=== PATIENT | male | born 1985 | race Caucasian/White ===

== ENCOUNTER → 2017-09-26 | Outpatient (CLI) | payer OTHER ==
[2014-12-02 23:54] VITALS: BP 156/79
--- NOTE | 2017-09-26 09:19 | RAD ---
Chest radiograph with left rib series 09/26/2017 8:50 AM INDICATION: Fall one and a half weeks ago with left-sided rib pain and bruising. COMPARISON: None available TECHNIQUE: Frontal view of the chest with 2 dedicated views of the left ribs are provided. FINDINGS: The cardiomediastinal silhouette is within normal limits. There are no pleural effusions. There is no pulmonary vascular congestion. There is no pneumothorax. The lungs are clear. Hypoplastic ribs are identified at T12. No definite displaced rib fracture is visualized. IMPRESSION: No acute cardiopulmonary process. No definite acutely displaced left-sided rib fracture is visualized. Electronically signed by: Shazia Ivey MD (09/26/2017 9:15 AM) [id number]
== END | disposition home or self-care (01) ==
LOC: PMG 08:35
PROVIDERS: ATTEND Physician Assistant Medical
DX: R07.81 Pleurodynia (principal)
CPT/HCPCS: 71101

== ENCOUNTER 2018-09-04 22:47 | Emergency (ER) | payer OTHER ==
[~2018-09-04] VITALS: Ht 167.6 cm; Wt 103.4 kg
[2018-09-04 22:51] VITALS: BP 153/105
[2018-09-04] MEDS ORDERED: NEOMY/BACITR/POLYMYXIN OINT PACKET. TP ONE ×2 (22:54→23:15)
[2018-09-04] MEDS ORDERED: HYDROcodon/IBUPROFEN 7.5/200MG 1 TAB TABLET PO ONE (23:15)
[2018-09-04] MEDS ORDERED: DIPHTH,PERTUSS(ACELL),TET TOX 0.5 ML DISP.SYRIN. VAX IM ONE (23:15)
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
== END 2018-09-04 23:24 | disposition home or self-care (01) ==
LOC: ER 22:47
DX: S63.502A Unspecified sprain of left wrist, initial encounter (principal); S90.511A Abrasion, right ankle, initial encounter; E03.9 Hypothyroidism, unspecified; Z88.0 Allergy status to penicillin; Z88.2 Allergy status to sulfonamides; Y04.0XXA Assault by unarmed brawl or fight, initial encounter; Y93.89 Activity, other specified; Y92.098 Other place in other non-institutional residence as the place of occurrence of the external cause; Y99.8 Other external cause status
CPT/HCPCS: 73110; 99284

== ENCOUNTER → 2019-01-03 | Outpatient (CLI) | payer OTHER ==
--- NOTE | 2019-01-03 14:35 | RAD ---
EXAM: Abdomen sonogram. HISTORY: Right upper quadrant pain. TECHNIQUE: Sonographic imaging of the abdomen was performed. COMPARISON: None. FINDINGS: The liver is normal in size. No focal hepatic lesion is seen. The gallbladder is unremarkable. The common bile duct is normal in caliber. The pancreas the aorta are partially obscured due to bowel gas. The inferior vena cava is patent. The right kidney is unremarkable. IMPRESSION: 1. Limited evaluation of the midline structures due to bowel gas. 2. Otherwise, unremarkable abdomen sonogram. Electronically signed by: Kenna Overton MD (01/03/2019 2:32 PM) [id number]
== END | disposition home or self-care (01) ==
LOC: US 07:30
PROVIDERS: ATTEND Physician Assistant
DX: R10.11 Right upper quadrant pain (principal)
CPT/HCPCS: 76705

== ENCOUNTER 2019-10-17 17:55 | Emergency (ER) | payer OTHER ==
[~2019-10-17] VITALS: Ht 167.6 cm; Wt 108.6 kg
[2019-10-17 18:00] VITALS: BP 143/89
[2019-10-17] MEDS ORDERED: PRED50TA PO (18:19)
[2019-10-17] MEDS ORDERED: CYCL-331 PO (18:19)
--- NOTE | 2019-10-17 18:20 | PHYS DOC ---
Past History Past Medical History: Hypothyroid, Other Past Surgical History: Other Alcohol Use: Occasionally Drug Use: None General Adult EDM: Chief Complaint: BACK INJURY HPI: HPI: 33-year-old male presents with central low back pain. It is very low in his back. He describes the pain as a sharp and intense pain of moderate intensity that is made worse with bending over or reaching out off axis. Patient states he was not do anything in particular. He thinks he was just picking up his lunch box or tying his shoes when it felt like it "locked up" and it was difficult to stand up straight. It is now generally sore with the sharp pain occasionally. He has never had anything like this. No history of low back problems. He has had neck issues in the past and is currently being treated for these. Patient admits that he was lifting a lot of heavy things a couple of days ago, but nothing today. 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 He denies fever chills. He has no numbness, tingling, or altered sensation. Review of Systems: Review of Systems: Constitutional: Denies fever or chills Eyes: Denies change in visual acuity HENT: Denies nasal congestion or sore throat Respiratory: Denies cough or shortness of breath Cardiovascular: Denies chest pain or edema GI: Denies abdominal pain, nausea, vomiting, bloody stools or diarrhea : Denies dysuria Musculoskeletal: Low back pain Integument: Denies rash Neurologic: Denies headache, focal weakness or sensory changes Endocrine: Denies polyuria or polydipsia Lymphatic: Denies swollen glands Psychiatric: Denies depression or anxiety Heart Score: Risk Factors: Risk Factors: DM, Current or recent (<one month) smoker, HTN, HLP, family history of CAD, obesity. Risk Scores: Score 0 - 3: 2.5% MACE over next 6 weeks - Discharge Home Score 4 - 6: 20.3% MACE over next 6 weeks - Admit for Clinical Observation Score 7 - 10: 72.7% MACE over next 6 weeks - Early Invasive Strategies Allergies: Allergies: Allergies Coded Allergies Type Severity Reaction Last Updated Verified Penicillins Allergy Unknown 12/02/14 No Sulfa (Sulfonamide Antibiotics) Allergy Unknown 12/02/14 No Physical Exam: PE: Constitutional: Well developed, well nourished, no acute distress, non-toxic appearance. [] HENT: Normocephalic, atraumatic, bilateral external ears normal, oropharynx moist, no oral exudates, nose normal. [] Eyes: PERRLA, EOMI, conjunctiva normal, no discharge. [] Neck: Normal range of motion, no tenderness, supple, no stridor. [] Cardiovascular:Heart rate regular rhythm, no murmur [] Lungs & Thorax: Bilateral breath sounds clear to auscultation [] Abdomen: Bowel sounds normal, soft, no tenderness, no masses, no pulsatile masses. [] Skin: Warm, dry, no erythema, no rash. [] Back: Tenderness over the right sacroiliac joint. No pain over the bony processes. [] Extremities: No tenderness, no cyanosis, no clubbing, ROM intact, no edema. [] Neurologic: Alert and oriented X 3, normal motor function, normal sensory function, no focal deficits noted. [] Psychologic: Affect normal, judgement normal, mood normal. [] EKG: EKG: [] Radiology/Procedures: Radiology/Procedures: [] Course & Med Decision Making: Course & Med Decision Making Pertinent Labs and Imaging studies reviewed. (See chart for details) The patient appears to have right sacroiliitis. I will treat him with 5 days of prednisone and Flexeril. He has a next couple days off work so he will ice the area and get some rest. He is stable for discharge at this time. [] Dragon Disclaimer: Dragon Disclaimer: This electronic medical record was generated, in whole or in part, using a voice recognition dictation system. Departure Departure: Impression: Primary Impression: Somatic dysfunction of right sacroiliac joint Disposition: HOME/RESIDENCE PRIOR TO ADM Condition: STABLE Referrals: LUIS EDUARDO KOVACS (PCP) Patient Instructions: Sacroiliac Joint Dysfunction Scripts Prednisone (PREDNISONE) 50 Mg Tablet 1 TAB PO DAILY for low back pain, #5 TAB Prov: SHAWNEE URIBE DO 10/17/19 Cyclobenzaprine Hcl (CYCLOBENZAPRINE HCL) 10 Mg Tablet 1 TAB PO TID PRN for MUSCLE SPASMS, #30 TAB Prov: SHAWNEE URIBE DO 10/17/19 Justification of Admission: Justification of Admission: Justification of Admission Dx: N/A SHAWNEE URIBE DO Oct 17, 2019 18:20
== END 2019-10-17 18:25 | disposition home or self-care (01) ==
LOC: ER 17:55
DX: M99.03 Segmental and somatic dysfunction of lumbar region (principal); M54.5 Low back pain; E03.9 Hypothyroidism, unspecified; Z88.0 Allergy status to penicillin; Z88.2 Allergy status to sulfonamides; Z98.890 Other specified postprocedural states
CPT/HCPCS: 99283